=== PATIENT | male | born 1945 | race Two or more races ===

== ENCOUNTER 2023-06-12 11:45 | Inpatient (IN) | payer OTHER ==
[~2023-06-12] VITALS: Ht 162.6 cm; Wt 81.6 kg
[2023-06-12] MEDS ORDERED: PLAVIX75 MG (12:08)
[2023-06-12] MEDS ORDERED: SIMVASTATIN5 MG (12:09)
[2023-06-12] MEDS ORDERED: METFORMIN HCL500 M4 (12:10)
[2023-06-12] MEDS ORDERED: NEURONTIN800 MG (12:10)
[2023-06-18] MEDS ORDERED: VANCOMYCIN HCL 1,000 MG VIAL ONE ×2 (07:24→10:27)
[2023-06-18] MEDS ORDERED: CEFAZOLIN SODIUM 1,000 MG VIAL ONE ×2 (07:24→16:38)
[2023-06-18] MEDS ORDERED: PROMETHAZINE HCL 50 MG/ML AMPUL IM PRN (07:30)
[2023-06-18] MEDS ORDERED: 0.9 % SODIUM CHLORIDE 1,000 ML IV SCH (07:30)
[2023-06-18] MEDS ORDERED: ENALAPRILAT DIHYDRATE 1.25 MG/ML VIAL IV PRN (07:30)
[2023-06-18] MEDS ORDERED: PERCOCET 5-3251 EACH PO (07:35)
[2023-06-18] MEDS ORDERED: AMOX-CLAV 875-1 EACH PO (07:36)
[2023-06-18] MEDS ORDERED: COLACE100 MG PO (07:36)
[2023-06-18] MEDS ORDERED: MEDROLPACK PO (07:36)
[2023-06-18] MEDS ORDERED: GABAPENTIN100 M2 PO (07:36)
[2023-06-18] MEDS ORDERED: NEURONTIN800 MG PO (07:37)
[2023-06-18] MEDS ORDERED: FAMOtidine 20 MG TABLET PO SCH (09:00)
[2023-06-18] MEDS ORDERED: VANCOMYCIN HCL 1,000 MG VIAL IV SCH (09:00)
[2023-06-18] MEDS ORDERED: DOCUSATE SODIUM 100MG CAP PO SCH (09:00)
[2023-06-18] MEDS ORDERED: CEFAZOLIN SODIUM 1,000 MG in 0.9 % SODIUM CHLORIDE 50 ML IV SCH (09:00)
[2023-06-18] MEDS ORDERED: METHYLPREDNISOLONE SOD SUCC 125 MG VIAL IV SCH (09:00)
[2023-06-18] MEDS ORDERED: MORPHINE SULFATE 4 MG,MORPHINE SULFATE 2 MG IV SCH (09:00)
[2023-06-18] MEDS ORDERED: HEMOSTATIC MATRIX 1 KIT KIT TOP ONE ×2 (09:35→11:15)
[2023-06-18] MEDS ORDERED: METHYLPREDNISOLONE SOD SUCC 125 MG VIAL ONE ×2 (09:35→16:37)
[2023-06-18] MEDS ORDERED: METHYLPREDNISOLONE ACETATE 80 MG/ML VIAL ONE (10:27)
[2023-06-18] MEDS ORDERED: VANCOMYCIN HCL 1,000 MG VIAL IR ONE (11:15)
[2023-06-18] MEDS ORDERED: VANCOMYCIN HCL 1,000 MG VIAL IV ONE (11:15)
[2023-06-18] MEDS ORDERED: METHYLPREDNISOLONE ACETATE 80 MG/ML VIAL IJ ONE (11:15)
[2023-06-18] MEDS ORDERED: METHYLPREDNISOLONE SOD SUCC 125 MG VIAL IV ONE ×2 (11:15)
[2023-06-18] MEDS ORDERED: CEFAZOLIN SODIUM 1,000 MG VIAL IV ONE (11:15)
[2023-06-18] MEDS ORDERED: ENALAPRILAT DIHYDRATE 1.25 MG/ML VIAL IV ONE (17:43)
[2023-06-18] MEDS ORDERED: GABAPENTIN 800 MG TABLET PO SCH (21:00)
[2023-06-19] MEDS ORDERED: SODIUM CHLORIDE 0.45 % 1,000 ML IV SCH
[2023-06-19 06:00] LABS: HEMATOCRIT 37.1 % (39.0-48.0); HEMOGLOBIN 12.6 g/dL (13-16.00); MEAN CELL VOLUME 84.3 fL (80.0-100.00); MEAN CORPUSCULAR HEMOGLOBIN 28.7 pg (27.00-32.0); PLATELET COUNT 250 K/uL (150-450)
[2023-06-19] MEDS ORDERED: OxyCODONE HCL/APAP UD (PERCOCET) PO PRN (06:01)
[2023-06-19 06:57] LABS: CALCIUM 8.5 mg/dL (8.5-10.1); CREATININE SERUM 1.26 mg/dL (0.70-1.30); GFR 55.49; POTASSIUM 4.55 mEq/L (3.5-5.1)
[2023-06-19] MEDS ORDERED: ENOXAPARIN SODIUM 40 MG/0.4 ML SYRINGE SUBCUTANEO SCH (09:00)
[2023-06-19] MEDS ORDERED: MetFORMIN HCL 500 MG TABLET PO SCH (09:00)
[2023-06-19] MEDS ORDERED: IRBESARTAN 150 MG TABLET PO SCH (09:00)
[2023-06-19] MEDS ORDERED: TAMSULOSIN HCL 0.4 MG CAP PO SCH (09:00)
[2023-06-19] MEDS ORDERED: INSULIN LISPRO 1,000 UNIT/10 ML UNITS SUBCUTANEO PRN (14:15)
[2023-06-19] MEDS ORDERED: DEXTROSE 50 % IN WATER 0.5 G/ML DISP.SYRIN IV PRN (14:15)
== END 2023-06-20 09:11 | disposition home or self-care (01) | DRG 455 ==
LOC: ADM 11:45 → SURH 06-18 07:10 → O/R 06-18 07:10 → SURG 06-18 10:15 → CIR.AMB 06-18 11:45 → SURG 06-18 11:45 → EDSTATUS 06-18 11:45 → SURH 06-18 13:15
PROVIDERS: ADMIT Orthopaedic Surgery Orthopaedic Surgery of the Spine; ATTEND Orthopaedic Surgery Orthopaedic Surgery of the Spine
PROC: 0SG0071 Fusion of Lumbar Vertebral Joint with Autologous Tissue Substitute, Posterior Approach, Posterior Column, Open Approach (ICD-10-PCS; 2023-06-18)
PROC: 0ST20ZZ Resection of Lumbar Vertebral Disc, Open Approach (ICD-10-PCS; 2023-06-18)
PROC: 0QB30ZZ Excision of Left Pelvic Bone, Open Approach (ICD-10-PCS; 2023-06-18)
PROC: 07DR0ZZ Extraction of Iliac Bone Marrow, Open Approach (ICD-10-PCS; 2023-06-18)
PROC: 4A1104G Monitoring of Peripheral Nervous Electrical Activity, Intraoperative, Open Approach (ICD-10-PCS; 2023-06-18)
PROC: 4A12X4Z Monitoring of Cardiac Electrical Activity, External Approach (ICD-10-PCS; 2023-06-18)
PROC: XRGB0R7 Fusion of Lumbar Vertebral Joint using Custom-Made Anatomically Designed Interbody Fusion Device, Open Approach, New Technology Group 7 (ICD-10-PCS; principal; 2023-06-18 10:15)
DX: M48.062 Spinal stenosis, lumbar region with neurogenic claudication (principal); M51.36 Other intervertebral disc degeneration, lumbar region